=== PATIENT | male | born 1955 | race Caucasian/White ===

== ENCOUNTER → 2016-10-14 | Outpatient (CLI) | payer BC ==
--- NOTE | 2016-10-14 11:54 | RADRPT ---
PROCEDURE: US Carotids. CLINICAL INDICATION: bruit , HEADACHES AND DIZZINESS TECHNIQUE: Multiple sonographic of the carotid bifurcation region and vertebral arteries were obta ined utilizing perez scale, duplex and color-flow imaging. The images were reviewed on a PACS worksta tion. COMPARISON: No prior studies are available for comparison. FINDINGS: Evaluation of the right carotid bifurcation region reveals mild calcific atherosclerotic disease. Evaluation of the left carotid bifurcation region reveals mild calcific atherosclerotic disease. There is antegrade flow within the vertebral arteries bilaterally. RIGHT CAROTID MEASUREMENTS: Common Carotid Fnpnng50.6 (cm/sec) Internal Carotid Artery - wkaecwod75.9 (cm/sec) Internal Carotid Artery - mid49.3 (cm/sec) Internal Carotid Artery - poxyix81.4 (cm/sec) Internal Carotid/Common Carotid0.63 LEFT CAROTID MEASUREMENTS: Common Carotid Czsuvr66.2 (cm/sec) Internal Carotid Artery - sdyhvryc54.8 (cm/sec) Internal Carotid Artery - mid64.8 (cm/sec) Internal Carotid Artery - ylccts80.7 (cm/sec) Internal Carotid/Common Carotid0.99 RPTAT: AA IMPRESSION: No evidence for hemodynamically significant stenosis in the bilateral internal carotid arteries - va lidated velocity measurements with angiographic measurements, velocity criteria are extrapolated fro m diameter data as defined by the Society of Radiologists in Ultrasound Consensus Conference Radiolo gy 2003; 229;340-346. This study does indirectly reference the measurement of the distal ICA diamet er as the denominator for stenosis measurement. Normal antegrade flow in the vertebral arteries bilaterally. .Eugene Tello MD, Date Time Electronically viewed and signed by .Eugene Tello MD, MD on 10/14/2016 11:54 .S/
== END | disposition home or self-care (01) ==
LOC: VAS 11:50
PROVIDERS: ATTEND Internal Medicine
DX: R51 Headache (principal); R42 Dizziness and giddiness; R09.89 Other specified symptoms and signs involving the circulatory and respiratory systems
CPT/HCPCS: 93880